=== PATIENT | female | born 1985 | race Caucasian/White ===

== ENCOUNTER 2017-12-05 11:20 | Outpatient (CLI) | payer OTHER ==
[~2017-12-05 11:20] MED LIST: CIPRO750 MG PO; CLONAZEPAM1 MG PO; DOCUSATE SODIU100 MG PO; LEVSIN/SL0.125 MG SL; NEURONTIN PO; NEURONTIN800 MG; PEPCID40 MG PO; PERCOCET 5/3251 TAB PO; PHENERGAN25 MG PO; SYNTHROID137 MCG
== END 2017-12-05 11:22 | disposition home or self-care (01) ==
LOC: RAD 11:20
DX: M54.81 Occipital neuralgia (principal)

== ENCOUNTER → 2019-01-22 07:20 | Outpatient (CLI) | payer OTHER | END | disposition home or self-care (01) | LOC: LAB 07:20 | DX: N80.0 Endometriosis of uterus (principal) ==

== ENCOUNTER 2019-03-16 14:58 | Outpatient (CLI) | payer OTHER | END 2019-03-16 15:00 | disposition home or self-care (01) | LOC: RAD 14:58 | DX: R07.89 Other chest pain (principal) ==

== ENCOUNTER 2019-03-16 15:49 | Outpatient (CLI) | payer OTHER | END 2019-03-16 15:53 | disposition home or self-care (01) | LOC: LAB 15:49 | DX: D50.0 Iron deficiency anemia secondary to blood loss (chronic) (principal); N39.0 Urinary tract infection, site not specified; N30.00 Acute cystitis without hematuria; E11.9 Type 2 diabetes mellitus without complications; E78.00 Pure hypercholesterolemia, unspecified; E03.8 Other specified hypothyroidism; R19.5 Other fecal abnormalities; E55.0 Rickets, active; D68.8 Other specified coagulation defects ==

== ENCOUNTER 2023-02-19 09:45 | Outpatient (CLI) | payer OTHER | END 2023-02-19 09:46 | disposition home or self-care (01) | LOC: RX STUDY 09:45 | PROVIDERS: ATTEND Obstetrics & Gynecology Reproductive Endocrinology | DX: N93.0 Postcoital and contact bleeding (principal) ==